=== PATIENT | female | born 1975 | race Caucasian/White ===

== ENCOUNTER → 2020-12-26 | Day surgery (SDC) | payer OTHER ==
[~2020-12-26] MED LIST: AMLODIPINE BESY10 MG PO; FLEXERIL10 MG PO; IBUPROFEN800 M1 PO; KEFLEX250 MG PO; KETOROLAC TROME10 MG PO; LISINOPRIL10 MG PO; NORCO 5-325 TA1 EACH PO; PERCOCET 5-3251 EACH PO; PROPRANOLOL HCL60 MG PO; SERTRALINE HCL100 MG PO; SUMATRIPTAN SU100 MG PO; SYEDA 28 TABLE1 EACH PO; ULTRAM50 MG PO; ZOFRAN8 MG PO; ZYRTEC10 M3 PO
[2020-12-26 10:33] LABS: HCG (URINE) SCREEN NEGATIVE (NEGATIVE)
== END | disposition home or self-care (01) ==
LOC: FAS 09:55
PROVIDERS: Obstetrics & Gynecology
DX: N93.8 Other specified abnormal uterine and vaginal bleeding (principal); N92.1 Excessive and frequent menstruation with irregular cycle; K21.9 Gastro-esophageal reflux disease without esophagitis; K64.9 Unspecified hemorrhoids; F41.9 Anxiety disorder, unspecified; I10 Essential (primary) hypertension; G43.909 Migraine, unspecified, not intractable, without status migrainosus; R93.9 Diagnostic imaging inconclusive due to excess body fat of patient; F32.9 Major depressive disorder, single episode, unspecified; Z86.39 Personal history of other endocrine, nutritional and metabolic disease; Z79.899 Other long term (current) drug therapy; Z98.890 Other specified postprocedural states
CPT/HCPCS: 84703; 86850; 86900; 86901; J1170; J2250; J2405; J2704; J3010; J7120